=== PATIENT | female | born 1965 | race Caucasian/White ===

== ENCOUNTER 2018-05-27 12:41 | Emergency (ER) | payer OTHER ==
[~2018-05-27] VITALS: Ht 162.6 cm; Wt 97.5 kg
[~2018-05-27 12:41] MED LIST: ACCUNEB SO1.25 MG/1 INH; CIPRO250 MG PO; FIORINAL CAPSUL1 CA1; FLEXERIL PO; HYDROCODONE-AP1 EAC6 PO; MIGRAINE MED; NORCO 5-325 TA1 EACH PO; ONDANSETRON HCL4 M2 PO; SIMVASTATIN20 MG PO
[2018-05-27] MEDS ORDERED: BUTALB-APAP-CA1 EACH PO (12:56)
[2018-05-27 13:03] LABS: URINE BILIRUBIN NEGATIVE (Negative); URINE BLOOD NEGATIVE (Negative); URINE CLARITY CLEAR; URINE COLOR YELLOW; URINE GLUCOSE-RANDOM NEGATIVE (Negative); URINE KETONES NEGATIVE (Negative); URINE LEUKOCYTES-REFLEX NEGATIVE (Negative); URINE NITRITE-REFLEX NEGATIVE (Negative); URINE PROTEIN NEGATIVE (Negative); URINE SPECIFIC GRAVITY 1.025 (1.005-1.030); URINE UROBILINOGEN 0.2 E.U./dl (0.2-1.0)
[2018-05-27 13:26] LABS: ABSOLUTE BASOPHILS 0.1 thou/uL (0.0-0.2); ABSOLUTE EOSINOPHILS 0.4 thou/uL (0.0-0.7); ABSOLUTE LYMPHOCYTES 1.9 thou/uL (0.8-5.3); ABSOLUTE MONOCYTES 0.6 thou/uL (0.0-1.2); ABSOLUTE NEUTROPHILS 4.2 thou/uL (1.6-8.1); BASOPHILS 0.9 %; EOSINOPHILS 5.7 %; HEMATOCRIT 43.4 % (37.0-47.0); HEMOGLOBIN 14.3 gm/dL (12.0-15.0); LYMPHOCYTES 25.9 %; MCH 29.6 pg (26.0-34.0); MCV 89.5 fL (80.0-100.0); MPV 8.7 fl. (7.2-11.1); NUCLEATED RBCS 0 /100WBC; PLATELET COUNT* 229 thou/uL (150-400); POLYS 58.5 %; RBC 4.85 mil/uL (4.20-5.00); RDW-CV 13.5 % (10.5-14.5); WBC 7.2 thou/uL (4.0-11.0)
[2018-05-27 13:31] LABS: CALCIUM 8.5 mg/dL (8.5-10.1); CREATININE 0.8 mg/dL (0.6-1.3); POTASSIUM 3.7 mmol/L (3.5-5.1)
[2018-05-27 13:35] LABS: ALBUMIN 3.5 g/dL (3.4-5.0); TOTAL BILIRUBIN 0.3 mg/dL (<0.1-1.0); TOTAL PROTEIN 7.1 g/dL (6.4-8.2)
[2018-05-27] MEDS ORDERED: NORCO 5-325 TA1 EACH PO (14:40)
[2018-05-27 14:53] VITALS: BP 148/74
== END 2018-05-27 14:53 | disposition home or self-care (01) ==
LOC: M.ERS 12:41
PROVIDERS: Physician Assistant
DX: N83.8 Other noninflammatory disorders of ovary, fallopian tube and broad ligament (principal); J45.909 Unspecified asthma, uncomplicated; G43.909 Migraine, unspecified, not intractable, without status migrainosus; Z90.710 Acquired absence of both cervix and uterus

== ENCOUNTER → 2019-02-03 | Outpatient (CLI) | payer OTHER ==
[~2019-02-03] MED LIST changes: +BUTALB-APAP-CA1 EACH PO
--- NOTE | 2019-02-10 16:44 | SLEEP ---
[address] [address] SLEEP STUDY REPORT Name: SHARIFCHRISTOPHE Room: [facility]#: [id number] Admission: 02/03/19 Attend Phys: Deborah Mcneill MD Discharge: Date of : 65 Report #: [id number] THIS REPORT FOR: //name// CC: Lluvia Mcneill MD This study has been reviewed in its entirety by a board certified sleep specialist DATE OF SERVICE: 02/04/2019 ATTENDING PHYSICIAN: Deborah Mcneill MD HISTORY: The patient is a 53-year-old who weighs 205 pounds with a BMI of 35.2. The patient's Clarkia score was 0. The patient underwent home sleep study performed at [facility]. Total recording time was 435 minutes. During the night study, the patient had 1 obstructive apnea, no central and no mixed apneas and 40 hypopneas. The patient's apnea hypopnea index was 5.7 per hour. Nocturnal oximetry study revealed an average oxygen saturation of 92% with a lowest of 87%. Only 10.5 minutes were spent in oxygen saturation less than 90%. Mean heart rate was 71 beats per minute with a maximum of 96 beats per minute. IMPRESSION: 1. Mild sleep apnea-hypopnea syndrome at an AHI of 5.7 per hour. 2. Mild nocturnal hypoxia secondary to obstructive sleep apnea. RECOMMENDATION: 1. The patient has mild sleep apnea. I would recommend treating the patient's sleep apnea initially with weight loss. 2. If the patient remains clinically symptomatic despite weight loss, then alternate treatment option would include use of an oral appliance as recommended by the dentist versus a trial of CPAP. 3. Avoid PIPE RACKER depressants. 4. Cautioned regarding driving until symptoms of sleep apnea resolve with the above recommendations. <ELECTRONICALLY SIGNED> By: Fred Dennison MD 02/10/19 1644 06 Aaleksandr Dennison MD /nt
== END ==
LOC: M.SLEEPLAB 01-28 15:30
DX: G47.33 Obstructive sleep apnea (adult) (pediatric) (principal); G47.30 Sleep apnea, unspecified; R09.02 Hypoxemia; G47.10 Hypersomnia, unspecified; E11.9 Type 2 diabetes mellitus without complications; E78.5 Hyperlipidemia, unspecified; G43.909 Migraine, unspecified, not intractable, without status migrainosus; J45.20 Mild intermittent asthma, uncomplicated

== ENCOUNTER 2021-01-05 02:06 | Emergency (ER) | payer OTHER ==
[~2021-01-05] VITALS: Ht 162.6 cm; Wt 102.1 kg
[2021-01-05] MEDS ORDERED: SIMVASTATIN80 MG PO ×2 (02:16)
[2021-01-05 03:04] LABS: ABSOLUTE BASOPHILS 0.1 thou/uL (0.0-0.2); ABSOLUTE LYMPHOCYTES 0.8 thou/uL (0.8-5.3); ABSOLUTE MONOCYTES 1.3 thou/uL (0.0-1.2); ABSOLUTE NEUTROPHILS 10.7 thou/uL (1.6-8.1); BASOPHILS 0.4 %; EOSINOPHILS 0.3 %; HEMATOCRIT 40.8 % (37.0-47.0); HEMOGLOBIN 14.1 gm/dL (12.0-15.0); LYMPHOCYTES 6.1 %; MCH 30.5 pg (26.0-34.0); MCHC 34.7 g/dL (28.0-37.0); MCV 88.1 fL (80.0-100.0); MONOCYTES 10.1 %; MPV 8.6 fl. (7.2-11.1); NUCLEATED RBCS 0 /100WBC; PLATELET COUNT* 188 thou/uL (150-400); POLYS 83.1 %; RBC 4.63 mil/uL (4.20-5.00); RDW-CV 13.2 % (10.5-14.5); WBC 12.9 thou/uL (4.0-11.0)
[2021-01-05 03:09] LABS: ALBUMIN 3.4 g/dL (3.4-5.0); TOTAL BILIRUBIN 0.5 mg/dL (<0.1-1.0); TOTAL PROTEIN 7.5 g/dL (6.4-8.2)
[2021-01-05] MEDS ORDERED: ZOFRAN ODT4 MG PO ×2 (04:28)
[2021-01-05] MEDS ORDERED: HYDROCODON-ACE1 EAC7 PO ×2 (04:28)
[2021-01-05 04:30] LABS: URINE BILIRUBIN NEGATIVE (Negative); URINE BLOOD NEGATIVE (Negative); URINE CLARITY CLEAR; URINE COLOR YELLOW; URINE GLUCOSE-RANDOM NEGATIVE (Negative); URINE KETONES TRACE (Negative); URINE LEUKOCYTES-REFLEX NEGATIVE (Negative); URINE NITRITE-REFLEX NEGATIVE (Negative); URINE PROTEIN NEGATIVE (Negative); URINE SPECIFIC GRAVITY 1.015 (1.005-1.030); URINE UROBILINOGEN 0.2 E.U./dl (0.2-1.0)
[2021-01-05 04:57] VITALS: BP 125/62
== END 2021-01-05 04:58 | disposition home or self-care (01) ==
LOC: M.ERS 02:06
PROVIDERS: Personal Emergency Response Attendant
DX: B34.9 Viral infection, unspecified (principal); Z20.822 Contact with and (suspected) exposure to COVID-19; J45.909 Unspecified asthma, uncomplicated; G43.909 Migraine, unspecified, not intractable, without status migrainosus

== ENCOUNTER 2021-01-06 18:00 | Inpatient (IN) | payer OTHER ==
[~2021-01-06] VITALS: Ht 162.6 cm; Wt 104.3 kg
[~2021-01-06 18:00] MED LIST changes: +HYDROCODON-ACE1 EAC7 PO; +SIMVASTATIN80 MG PO; +ZOFRAN ODT4 MG PO
[2021-01-06 18:10] VITALS: BP 132/71
[2021-01-06 19:16] LABS: ABSOLUTE BASOPHILS 0.1 thou/uL (0.0-0.2); ABSOLUTE EOSINOPHILS 0.1 thou/uL (0.0-0.7); ABSOLUTE LYMPHOCYTES 1.1 thou/uL (0.8-5.3); ABSOLUTE MONOCYTES 1.2 thou/uL (0.0-1.2); ABSOLUTE NEUTROPHILS 7.8 thou/uL (1.6-8.1); BASOPHILS 0.6 %; EOSINOPHILS 1.4 %; HEMATOCRIT 38.1 % (37.0-47.0); HEMOGLOBIN 13.1 gm/dL (12.0-15.0); LYMPHOCYTES 10.4 %; MCH 30.2 pg (26.0-34.0); MCHC 34.4 g/dL (28.0-37.0); MCV 87.8 fL (80.0-100.0); MONOCYTES 11.3 %; MPV 8.9 fl. (7.2-11.1); NUCLEATED RBCS 0 /100WBC; PLATELET COUNT* 167 thou/uL (150-400); POLYS 76.3 %; RBC 4.34 mil/uL (4.20-5.00); RDW-CV 13.1 % (10.5-14.5); WBC 10.3 thou/uL (4.0-11.0)
[2021-01-06 19:54] LABS: CALCIUM 8.7 mg/dL (8.5-10.1); CREATININE 1.1 mg/dL (0.6-1.3); POTASSIUM 3.6 mmol/L (3.5-5.1)
[2021-01-06 19:59] LABS: TOTAL BILIRUBIN 0.5 mg/dL (<0.1-1.0); TOTAL PROTEIN 7.2 g/dL (6.4-8.2)
[2021-01-06 20:22] LABS: URINE BILIRUBIN NEGATIVE (Negative); URINE BLOOD NEGATIVE (Negative); URINE CLARITY CLEAR; URINE COLOR YELLOW; URINE GLUCOSE-RANDOM NEGATIVE (Negative); URINE KETONES NEGATIVE (Negative); URINE LEUKOCYTES-REFLEX NEGATIVE (Negative); URINE NITRITE-REFLEX NEGATIVE (Negative); URINE PROTEIN NEGATIVE (Negative); URINE SPECIFIC GRAVITY <= 1.005 (1.005-1.030); URINE UROBILINOGEN 0.2 E.U./dl (0.2-1.0)
--- NOTE | 2021-01-06 22:06 | NUR ---
LUMBAR PUNCTURE CONSENT SIGNED
[2021-01-07 00:54] VITALS: BP 120/60
[2021-01-07 01:31] LABS: CSF GLUCOSE 81 mg/dl (40-70); CSF PROTEIN 21.9 mg/dl (15-45)
[2021-01-07 02:49] LABS: CSF CLARITY CLEAR; CSF COLOR CLEAR; VOLUME 4 ml
[2021-01-07 04:52] VITALS: BP 130/63
[2021-01-07 06:00] LABS: CSF RBC 2 /mm3; CSF WBC 3 /mm3 (0-10)
[2021-01-07 11:20] VITALS: BP 117/69
--- NOTE | 2021-01-07 18:55 | NUR ---
PT TRANSFERRED TO ROOM PER CART ACCOMPANIED BY RN AND WITH BELONGINGS. ORIENTED TO ROOM AND CALL LITE. PT UP WITH SBA TO BR TO VOID. DENIES NEED FOR PAIN MEDICATION AT THIS TIME, CO DULL HEADACHE, WORSENS WHEN WALKING BUT SUBSIDES SOMEWHAT WHEN BACK TO BED. MEDS GIVEN PRIOR TO COMING TO FLOOR. CALL LITE IN EASY REACH, AT BEDSIDE. WILL CONTINUE TO MONITOR AND PROVIDE CARES ORDERED.
--- NOTE | 2021-01-07 19:11 | NUR ---
RECEIVED REPORT FROM JENNIFER JOHNSON RN. PATIENT ADMITTED FOR FEVER/HEADACHE. PATIENT HAD NEG COVID TEST. HX OF ASTHMA AND MIGRAINES. PATIENT BOARDED IN PACU UNTIL ROOM AVAILABLE. UPON ARRIVAL TO PACU, PATIENT STATED HEADACHE 0/10 AND AFEBRILE. PATIENT FEELING WORSE DAY WENT ON. FLUIDS AND IV ANTIBIOTICS STARTED PER ORDERS. PATIENT TO CT TODAY. SPOUSE WITH PT. PATIENT TRANSFERRED TO [facility] AT 1850. CALL LIGHT IN REACH. BED IN LOWEST LOCKED POSITION.
[2021-01-07 20:59] VITALS: BP 126/52
[2021-01-08 00:15] VITALS: BP 115/53
[2021-01-08 02:06] LABS: HEPATITIS B SURFACE AG Negative (Negative)
[2021-01-08 03:58] VITALS: BP 122/56
[2021-01-08 05:21] LABS: AMP/METHAMP Negative (Negative); BARBITURATES Negative (Negative); BENZODIAZEPINES Negative (Negative); COCAINE Negative (Negative); METHADONE Negative (Negative); OPIATES Negative (Negative); PCP Negative (Negative); THC Negative (Negative)
[2021-01-08] MEDS ORDERED: SYMBICORT160 MCG/4. INH ×2 (06:51)
--- NOTE | 2021-01-08 07:35 | NUR ---
PT SLEPT OFF AND ON OVERNIGHT, CO CONSTANT HEADACHE THAT EASES SOME AFTER MEDICATION AND THEN RETURNS. RECEIVED TYLENOL, FIORICET, BENADRYL AND COMPAZINE ORDERED. PHARMACIST REPORTS TORADOL CONTRAINDICATED AFTER CT WITH CONTRAST AT THIS TIME. AT BEDSIDE OVERNIGHT. LFA IVF INFUSING PER PUMP. PT UP WITH STEADY GAIT TO BR TO VOID WITHOUT DIFFICULTY. ROOM AIR. FEVER MAX 100.2 THIS SHIFT. AM LABS. [facility]ANDAID [facility]G [facility] TO LUMBAR PUNCTURE SITE. ID AND NEURO CONSULT. PT REPORTS THIS MORNING SHE TAKES SYMBICORT INHALER AND REQUESTING MED TO BE ORDERED-DR NOTIFIED AND ORDERS RECEIVED. ABLE TO USE CALL LITE AND MAKE NEEDS KNOWN.
[2021-01-08 08:20] VITALS: BP 143/69
[2021-01-08 10:06] LABS: ABSOLUTE EOSINOPHILS 0.1 thou/uL (0.0-0.7); ABSOLUTE LYMPHOCYTES 0.9 thou/uL (0.8-5.3); ABSOLUTE MONOCYTES 1.2 thou/uL (0.0-1.2); ABSOLUTE NEUTROPHILS 7.4 thou/uL (1.6-8.1); BASOPHILS 0.5 %; HEMATOCRIT 33.9 % (37.0-47.0); HEMOGLOBIN 11.7 gm/dL (12.0-15.0); LYMPHOCYTES 9.4 %; MCH 30.5 pg (26.0-34.0); MCHC 34.7 g/dL (28.0-37.0); MCV 88.1 fL (80.0-100.0); MPV 9.1 fl. (7.2-11.1); NUCLEATED RBCS 0 /100WBC; PLATELET COUNT* 156 thou/uL (150-400); POLYS 77.1 %; RBC 3.85 mil/uL (4.20-5.00); RDW-CV 13.1 % (10.5-14.5); WBC 9.6 thou/uL (4.0-11.0)
[2021-01-08 10:22] LABS: ALBUMIN 2.3 g/dL (3.4-5.0); CALCIUM 8.1 mg/dL (8.5-10.1); CREATININE 0.9 mg/dL (0.6-1.3); POTASSIUM 3.8 mmol/L (3.5-5.1); TOTAL BILIRUBIN 0.4 mg/dL (<0.1-1.0); TOTAL PROTEIN 6.4 g/dL (6.4-8.2)
[2021-01-08 11:57] VITALS: BP 123/54
[2021-01-08 15:51] VITALS: BP 106/61
--- NOTE | 2021-01-08 19:00 | NUR ---
PT ALERT AND ORIENTED X 4. PT UP STEADY WITHOUT ASSIST. REMAINS AT BEDSIDE. IVF INFUSING AT THIS TIME. PT DENIES ANY PAIN. IMITREX WORKED FOR PT'S MIGRAINE. PT DENIES SOA. CALL LIGHT WITHIN REACH. PT REMAINS AFEBRILE AT THIS TIME. CALL LIGHT WITHIN REACH. PT TOLERATING PO INTAKE WELL.
[2021-01-08 20:00] VITALS: BP 126/62
--- NOTE | 2021-01-09 05:09 | NUR ---
ASSUMED CARE AT 1930. PATIENT RESTING IN BED. AT BEDSIDE. DENIES HEADACHE. IV FLUIDS INFUSING WITHOUT DIFF TO LT FOREARM. ALERT AND ORIENTED X4. TURNS SELF. AFEBRILE. HOURLY ROUNDS CONTINUE. CALL LITE IN REACH.
[2021-01-09 07:08] LABS: ABSOLUTE MONOCYTES 0.4 thou/uL (0.0-1.2); BASOPHILS 0.3 %; LYMPHOCYTES 8.5 %; MONOCYTES 4.8 %; POLYS 86.4 %
[2021-01-09 07:28] LABS: HEMATOCRIT 36.1 % (37.0-47.0); HEMOGLOBIN 12.4 gm/dL (12.0-15.0); MCH 29.9 pg (26.0-34.0); MCHC 34.3 g/dL (28.0-37.0); MCV 87.2 fL (80.0-100.0); MPV 9.4 fl. (7.2-11.1); NUCLEATED RBCS 0 /100WBC; PLATELET COUNT* 179 thou/uL (150-400); RBC 4.14 mil/uL (4.20-5.00); RDW-CV 13.4 % (10.5-14.5); WBC 7.8 thou/uL (4.0-11.0)
[2021-01-09 07:31] LABS: ALBUMIN 2.4 g/dL (3.4-5.0); CALCIUM 8.9 mg/dL (8.5-10.1); CREATININE 0.8 mg/dL (0.6-1.3); TOTAL BILIRUBIN 0.2 mg/dL (<0.1-1.0)
[2021-01-09 08:00] VITALS: BP 144/77
[2021-01-09 08:40] LABS: PREALBUMIN 10.9 mg/dL (18.0-35.7)
[2021-01-09] MEDS ORDERED: IMITREX 50 MG T50 MG PO ×2 (11:27)
[2021-01-09] MEDS ORDERED: AZITHROMYCIN500 MG PO ×2 (11:29)
[2021-01-09] MEDS ORDERED: CEFDINIR300 MG PO ×2 (11:29)
[2021-01-09] MEDS ORDERED: PROTONIX40 M2 PO ×2 (11:33)
[2021-01-09] MEDS ORDERED: PREDNISONE 10 M10 MG PO ×2 (11:33)
[2021-01-09] MEDS ORDERED: PROAIR HFA8.5 GM INH ×2 (11:33)
[2021-01-09 13:56] VITALS: BP 144/77
[2021-01-09 14:30] VITALS: BP 144/77
--- NOTE | 2021-01-09 14:31 | NUR ---
PATIENT DISCHARGED AT THIS TIME VIA WHEELCHAIR, ACCOMPANIED BY NURSE TECH TO PRIVATE VEHICLE. IV DC'D, COTTON AND TAPE PLACED TO SITE. PERSONAL BELONGINGS SENT HOME WITH PATIENT. DISCHARGE INSTRUCTIONS REVIEWED, PATIENT ACKNOWLEDGED UNDERSTANDING. ALL QUESTIONS AND CONCERNS ADDRESSED.
== END 2021-01-09 14:15 | disposition home or self-care (01) | DRG 871 ==
LOC: M.ERS 18:00 → M.TBA-ER 21:41 → M.ORTHSURG 01-07 19:06
PROVIDERS: Internal Medicine; Personal Emergency Response Attendant; Physician Assistant; ADMIT Internal Medicine; ATTEND Internal Medicine
PROC: 009U3ZZ Drainage of Spinal Canal, Percutaneous Approach (ICD-10-PCS; principal; 2021-01-06)
DX: A41.9 Sepsis, unspecified organism (principal); J15.6 Pneumonia due to other Gram-negative bacteria; J45.901 Unspecified asthma with (acute) exacerbation; G43.909 Migraine, unspecified, not intractable, without status migrainosus; Z20.822 Contact with and (suspected) exposure to COVID-19; Z90.710 Acquired absence of both cervix and uterus; Z79.899 Other long term (current) drug therapy; Z72.89 Other problems related to lifestyle